=== PATIENT | male | born 1955 | race Caucasian/White ===

== ENCOUNTER → 2020-07-19 | Outpatient (CLI) | payer OTHER, MEDICARE ==
[~2020-07-19] MED LIST: OMNIPAQUE 350 MG/ML, 100ML BOTTLE ONE
== END | disposition home or self-care (01) ==
LOC: CFH 14:52
PROVIDERS: ATTEND Internal Medicine Gastroenterology
DX: K74.69 Other cirrhosis of liver (principal); R93.89 Abnormal findings on diagnostic imaging of other specified body structures; E66.09 Other obesity due to excess calories; I10 Essential (primary) hypertension; M25.78 Osteophyte, vertebrae; M47.816 Spondylosis without myelopathy or radiculopathy, lumbar region; M51.36 Other intervertebral disc degeneration, lumbar region; Z86.010 Personal history of colon polyps
CPT/HCPCS: 74170; Q9967

== ENCOUNTER 2021-02-06 13:45 | Outpatient (CLI) | payer OTHER, MEDICARE | END 2021-02-06 23:59 | disposition home or self-care (01) | LOC: RAD 13:45 | PROVIDERS: ATTEND Internal Medicine Gastroenterology | DX: K76.9 Liver disease, unspecified (principal); R93.89 Abnormal findings on diagnostic imaging of other specified body structures; D12.5 Benign neoplasm of sigmoid colon; D12.3 Benign neoplasm of transverse colon; B18.2 Chronic viral hepatitis C; I10 Essential (primary) hypertension; K31.89 Other diseases of stomach and duodenum; E66.09 Other obesity due to excess calories; K74.69 Other cirrhosis of liver; Z86.010 Personal history of colon polyps | CPT/HCPCS: 76705 ==